=== PATIENT | female | born 1985 | race Caucasian/White ===

== ENCOUNTER 2016-06-23 15:42 | Emergency (ER) | payer OTHER ==
[2016-06-23 17:41] LABS: ABSOLUTE NEUTROPHIL COUNT 2.3 K/mm3 (1.8-7.7); BASO # 0.1 K/mm3 (0.0-0.2); EOS # 0.2 (0.0-0.5); EOS % 4.4 % (0.9-2.9); HEMATOCRIT 41.3 % (37.0-47.0); HEMOGLOBIN 13.4 gm/l (12.0-16.0); IMM NEUT% 0.2 % (0-1); LYMPH # 2.3 (1.0-4.8); LYMPH % 43.4 % (15-45); MEAN CELL VOLUME 91.8 fl (81.0-99.0); MEAN CORPUSCULAR HEMOGLOBIN 29.8 pg (27.0-31.0); MEAN CORPUSCULAR HGB CONC 32.4 g/dl (33.0-37.0); MEAN PLATELET VOLUME 11.6 fl (7.4-10.4); MONO # 0.4 (0.0-0.8); MONO % 6.7 % (4-12); NEUT % 44.3 % (43-75); PLATELET COUNT 211 K/mm3 (130-400); RED CELL DISTRIBUTION WIDTH 13.2 % (11.5-14.5)
[2016-06-23 17:52] LABS: ALB/GLOB RATIO 1.4 (>1.0); ALBUMIN 4.1 gm/dL (3.5-5.7); CALCIUM 9.1 mg/dL (8.6-10.3); MAGNESIUM 2.2 mg/dL (1.9-2.7)
== END 2016-06-23 18:33 | disposition home or self-care (01) ==
LOC: ED 15:42
DX: R20.9 Unspecified disturbances of skin sensation (principal); M25.511 Pain in right shoulder; R51 Headache; M62.81 Muscle weakness (generalized)